=== PATIENT | male | born 1975 | race Caucasian/White ===

== ENCOUNTER 2021-05-11 11:56 | Emergency (ER) | payer OTHER ==
[~2021-05-11] VITALS: Ht 182.9 cm; Wt 93.9 kg
[2021-05-11 12:21] VITALS: BP 136/86
[2021-05-11] MEDS ORDERED: KETOROLAC 30 MG/ML VIAL IM ONE (12:50)
[2021-05-11] MEDS ORDERED: ACYC-279 PO (12:56)
[2021-05-11] MEDS ORDERED: ACET-8386 PO (12:56)
[2021-05-11] MEDS ORDERED: IBUP-2213 PO (12:56)
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
[2021-05-11] MEDS ORDERED: KETOROLAC 30 MG/ML VIAL ONE (14:17)
[2021-05-11 14:33] VITALS: BP 136/86
--- NOTE | 2021-05-11 14:33 | NUR ---
Patient discharged with v/s stable. Written and verbal after care instructions ABOUT SHINGLES given and explained. Patient alert, oriented and verbalized understanding of instructions. Ambulatory with steady gait. All questions addressed prior to discharge. ID band removed. Patient advised to follow up with PMD. Rx of ACYCLOVIR, MORTIN 600MG, NORCO 5-325 given. Patient educated on indication of medication including possible reaction and side effects. Opportunity to ask questions provided and answered.
== END 2021-05-11 14:33 | disposition home or self-care (01) ==
LOC: MED 11:56
DX: B02.9 Zoster without complications (principal); F17.210 Nicotine dependence, cigarettes, uncomplicated
CPT/HCPCS: 96372; 99283; J1885

== ENCOUNTER 2022-07-19 11:37 | Emergency (ER) | payer OTHER ==
[~2022-07-19] VITALS: Ht 182.9 cm; Wt 100.4 kg
[~2022-07-19 11:37] MED LIST: ACET-8905 PO; ACYC-279 PO; IBUP-2213 PO
[2022-07-19 12:00] VITALS: BP 149/105
--- NOTE | 2022-07-19 12:11 | NUR ---
CONTACTED [facility] DEPARTMENT TO VERIFY REPORT WAS TAKEN. CASE #[id number]
[2022-07-19] MEDS ORDERED: ONDANSETRON 4 MG/2 ML VIAL IVP ONE (12:40)
[2022-07-19] MEDS ORDERED: MORPHINE SULFATE 4 MG/ML SYR IVP ONE (12:40)
--- NOTE | 2022-07-19 12:40 | NUR ---
X-Ray at bedside.
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
[2022-07-19 13:08] LABS: BASOPHILS % (AUTO) 0.6 % (0.0-2.0); EOSINOPHILS # (AUTO) 0.1 K/uL (0-0.4); EOSINOPHILS % (AUTO) 1.9 % (0.0-4.0); HEMATOCRIT 48.4 % (36-52); HEMOGLOBIN 16.6 g/dL (12.0-18.0); LYMPHOCYTES # (AUTO) 1.9 K/uL (2.0-11.5); LYMPHOCYTES % (AUTO) 31.7 % (20.5-51.1); MEAN CORPUSCULAR HEMOGLOBIN 34 pg (27-31); MEAN CORPUSCULAR HGB CONC 34 g/dL (33-37); MEAN CORPUSCULAR VOLUME 98.2 fL (80-94); MONOCYTES # (AUTO) 0.6 K/uL (0.8-1.0); MONOCYTES % (AUTO) 9.9 % (1.7-9.3); NEUTROPHILS # (AUTO) 3.3 K/uL (1.8-7.7); NEUTROPHILS % (AUTO) 55.9 % (42.2-75.2); PLATELET COUNT (AUTO) 111 K/uL (140-450); RED BLOOD CELL COUNT(AUTO) 4.93 MIL/uL (4.20-6.10); RED CELL DISTRIBUTION WIDTH 13.3 % (11.6-13.7); WHITE BLOOD COUNT (AUTO) 5.9 K/uL (4.8-10.8)
[2022-07-19 13:36] LABS: PROTHROMBIN TIME 11.1 secs (10.8-13.4)
[2022-07-19 13:37] LABS: ALBUMIN 4.5 g/dL (3.4-5.0); ANION GAP 15.1 (8-16); POTASSIUM 4.1 mmol/L (3.5-5.1); TOTAL BILIRUBIN 1.7 mg/dL (0.0-1.0)
[2022-07-19] MEDS ORDERED: NACL 0.9% 2,000 ML IV ONE (15:10)
--- NOTE | 2022-07-19 15:37 | NUR ---
PT WITH CONTINUED PAIN, AMY MADE AWARE
[2022-07-19 15:43] VITALS: BP 145/96
[2022-07-19] MEDS ORDERED: MORPHINE SULFATE 2 MG/ML SYR IVP STA (15:46)
[2022-07-19] MEDS ORDERED: CYCLOBENZAPRINE 10 MG TAB PO ONE (15:50)
--- NOTE | 2022-07-19 16:35 | NUR ---
PT AMBULATED TO BATHROOM WITH STEADY GAIT
--- NOTE | 2022-07-19 16:41 | NUR ---
DR AYALA AT BEDSIDE FOR RE EVAL
[2022-07-19] MEDS ORDERED: ACET-10509 PO (16:47)
[2022-07-19] MEDS ORDERED: CYCL-711 PO (16:50)
[2022-07-19] MEDS ORDERED: LID5T TP (16:50)
--- NOTE | 2022-07-19 17:03 | NUR ---
IV removed, catheter intact and site benign. Applied folded 4x4 gauze and tape to stop bleeding.
--- NOTE | 2022-07-19 17:05 | NUR ---
MASTIC [employer]AYER [facility]MAR CONTACTED TO SET UP UBER, AWAITING CALL BACK
--- NOTE | 2022-07-19 17:20 | NUR ---
PER ELECTRICAL SERVICE TECHNICIAN UNABLE TO PROVIDE TRANSPORT, PT STATES THAT HE IS UNABLE TO HAVE FAMILY/FRIENDS PICK HIM UP
--- NOTE | 2022-07-19 17:30 | NUR ---
PER DR AYALA, PT OK TO GO HOME, APPEARS AWAKE AND ALERT, GIVEN MORPHINE AT 1600 TODAY Addendum: 07/19/22 at 1744 by [email or web address] DENIES ANY DIZZINESS, LETHARGY
--- NOTE | 2022-07-19 17:30 | NUR ---
Patient discharged with v/s stable. Written and verbal after care instructions given and explained. Patient alert, oriented and verbalized understanding of instructions. Ambulatory with steady gait. All questions addressed prior to discharge. ID band removed. Patient advised to follow up with PMD. Rx of ACETAMINOPHEN. FLEXERIL, LIDODERM given. Patient educated on indication of medication including possible reaction and side effects. Opportunity to ask questions provided and answered.
--- NOTE | 2022-07-19 17:35 | NUR ---
PT AMBULATED TO LOBBY WITH STEADY GAIT
== END 2022-07-19 17:30 | disposition home or self-care (01) ==
LOC: MED 11:37
DX: R07.81 Pleurodynia (principal); Z79.899 Other long term (current) drug therapy
CPT/HCPCS: 36415; 70450; 71045; 71260; 72125; 74177; 80053; 85025; 85610; 85730; 93005; 96361; 96374; 96375; 96376; 99285; J2270; J2405; J7030; Q9967

== ENCOUNTER 2023-08-18 12:43 | Outpatient (CLI) | payer OTHER ==
[~2023-08-18 12:43] MED LIST changes: +ACET-10509 PO; +CYCL-711 PO; +LID5T TP
[2023-08-18 13:35] LABS: BASOPHILS % (AUTO) 0.5 % (0.0-2.0); EOSINOPHILS # (AUTO) 0.1 K/uL (0-0.4); EOSINOPHILS % (AUTO) 2.6 % (0.0-4.0); HEMATOCRIT 47.9 % (36-52); LYMPHOCYTES # (AUTO) 1.7 K/uL (2.0-11.5); LYMPHOCYTES % (AUTO) 34.8 % (20.5-51.1); MEAN CORPUSCULAR HEMOGLOBIN 35 pg (27-31); MEAN CORPUSCULAR HGB CONC 36 g/dL (33-37); MEAN CORPUSCULAR VOLUME 99.4 fL (80-94); MONOCYTES # (AUTO) 0.6 K/uL (0.8-1.0); MONOCYTES % (AUTO) 11.6 % (1.7-9.3); NEUTROPHILS # (AUTO) 2.4 K/uL (1.8-7.7); NEUTROPHILS % (AUTO) 50.5 % (42.2-75.2); PLATELET COUNT (AUTO) 117 K/uL (140-450); RED BLOOD CELL COUNT(AUTO) 4.82 MIL/uL (4.20-6.10); WHITE BLOOD COUNT (AUTO) 4.8 K/uL (4.8-10.8)
[2023-08-18 14:37] LABS: BASOPHILS % (AUTO) 0.9 % (0.0-2.0); EOSINOPHILS # (AUTO) 0.2 K/uL (0-0.4); EOSINOPHILS % (AUTO) 3.4 % (0.0-4.0); HEMATOCRIT 48.7 % (36-52); LYMPHOCYTES % (AUTO) 37.5 % (20.5-51.1); MEAN CORPUSCULAR HEMOGLOBIN 35 pg (27-31); MEAN CORPUSCULAR HGB CONC 35 g/dL (33-37); MEAN CORPUSCULAR VOLUME 99.7 fL (80-94); MONOCYTES # (AUTO) 0.6 K/uL (0.8-1.0); MONOCYTES % (AUTO) 10.5 % (1.7-9.3); NEUTROPHILS # (AUTO) 2.5 K/uL (1.8-7.7); NEUTROPHILS % (AUTO) 47.7 % (42.2-75.2); PLATELET COUNT (AUTO) 120 K/uL (140-450); RED BLOOD CELL COUNT(AUTO) 4.88 MIL/uL (4.20-6.10); RED CELL DISTRIBUTION WIDTH 14.1 % (11.6-13.7); WHITE BLOOD COUNT (AUTO) 5.3 K/uL (4.8-10.8)
[2023-08-18 14:39] LABS: ANION GAP 13.1 (8-16); CARBON DIOXIDE 30.5 mmol/L (21-32); CREATININE 1.1 mg/dL (0.6-1.3); POTASSIUM 4.6 mmol/L (3.5-5.1)
[2023-08-19 11:56] LABS: HEMATOCRIT 48.9 % (36.0 - 50.0); MEAN CORPUSCULAR HEMOGLOBIN 34.6 pg (27 - 40); MEAN CORPUSCULAR HGB CONC 34.8 g/dL (32.0 - 36.0); MEAN CORPUSCULAR VOLUME 100 fL (80 - 98); PLATELETS 112 x10E3/uL (140 - 415); RED BLOOD CELL 4.91 x10E6/uL (4.10 - 5.60); RED CELL DISTRIBUTION WIDTH 13.3 % (11.7 - 15.0); WHITE BLOOD CELL 4.1 x10E3/uL (4.0 - 10.5)
[2023-08-19 11:57] LABS: BASOPHILS % 1 % (0 - 3); EOSINOPHILS % 3 % (0 - 7); LYMPHOCYTES # 1.6 x10E3/uL (0.7 - 4.5); LYMPHOCYTES % 39 % (14 - 46); MONOCYTES # 0.5 x10E3/uL (0.1 - 1.0); MONOCYTES % 11 % (4 - 13); NEUTROPHILS # 1.9 x10E3/uL (1.8 - 7.8); NEUTROPHILS % 45 % (40 - 74)
[2023-08-19 11:58] LABS: EOSINOPHILS # 0.1 x10E3/uL (0.0 - 0.4)
== END 2023-08-18 22:42 | disposition home or self-care (01) ==
LOC: MLB 12:43
DX: K21.9 Gastro-esophageal reflux disease without esophagitis (principal); R10.9 Unspecified abdominal pain; Z21 Asymptomatic human immunodeficiency virus [HIV] infection status; K64.9 Unspecified hemorrhoids
CPT/HCPCS: 36415; 80048; 82728; 83540; 85025; 86360; 87522

== ENCOUNTER 2023-08-22 06:10 | Day surgery (SDC) | payer OTHER ==
[~2023-08-22] VITALS: Ht 182.9 cm; Wt 100.2 kg
[2023-08-22] MEDS ORDERED: fentaNYL citrate 0.05 MG/ML VIAL ONE (07:23)
[2023-08-22] MEDS ORDERED: MIDAZOLAM 2 MG/2 ML VIAL ONE (07:24)
[2023-08-22] MEDS ORDERED: ONDANSETRON 4 MG/2 ML VIAL IVP PRN (07:35)
[2023-08-22] MEDS ORDERED: diphenhydrAMINE 50 MG/ML VIAL IVP PRN (07:35)
[2023-08-22] MEDS ORDERED: MEPERIDINE 25 MG/ML SYR IVP PRN (07:35)
[2023-08-22] MEDS ORDERED: ROCURONIUM 50 MG/5 ML VIAL IV ONE (07:58)
[2023-08-22] MEDS ORDERED: ONDANSETRON 4 MG/2 ML VIAL ONE (07:58)
[2023-08-22] MEDS ORDERED: PROPOFOL 200 MG/20 ML VIAL IV ONE (07:58)
[2023-08-22] MEDS ORDERED: NEOSTIGMINE 1:1000 10 MG/10 ML VIAL ONE (07:58)
[2023-08-22] MEDS ORDERED: KETOROLAC 30 MG/ML VIAL ONE (07:58)
[2023-08-22] MEDS ORDERED: SEVOFLURANE 250 ML BTL INH ONE (07:58)
[2023-08-22] MEDS ORDERED: GLYCOPYRROLATE 0.2 MG/ML VIAL ONE (07:58)
[2023-08-22] MEDS ORDERED: ACETAMINOPHEN 100 ML IV ONE (08:30)
[2023-08-22] MEDS: BUPIVACAINE-MPF 0.25% 30 ML VIAL INJ ONE (08:32)
[2023-08-22] MEDS: LIDOCAINE/EPI 1% 1:100000 20 ML VIAL INJ ONE (08:32)
[2023-08-22] MEDS ORDERED: ACETAMINOPHEN 100 ML IV PRN (08:35)
[2023-08-22] MEDS: HYDROmorphone 1 MG/ML AMP IVP PRN (09:13)
[2023-08-22] MEDS ORDERED: HYDROmorphone PFS 2 MG/ML SYR ONE (09:32)
== END 2023-08-22 10:50 | disposition home or self-care (01) ==
LOC: MDS 06:10 → MMU 06:11 → MDS 10:50
PROVIDERS: ATTEND Surgery
DX: K64.8 Other hemorrhoids (principal); F32.A Depression, unspecified; F41.9 Anxiety disorder, unspecified; K21.9 Gastro-esophageal reflux disease without esophagitis; Z79.899 Other long term (current) drug therapy; B20 Human immunodeficiency virus [HIV] disease
CPT/HCPCS: 46260; 71045; 93005; J1170; J1885; J2001; J2250; J2405; J2704; J2710; J3010; J3490